=== PATIENT | female | born 1990 | race Caucasian/White ===

== ENCOUNTER 2019-02-16 03:36 | Emergency (ER) | payer OTHER ==
[~2019-02-16] VITALS: Ht 170.2 cm; Wt 116.1 kg
[2019-02-16 03:39] VITALS: Ht 170.2 cm; Wt 116.1 kg
[2019-02-16 06:32] VITALS: BP 115/63
== END 2019-02-16 06:32 | disposition home or self-care (01) ==
LOC: ED 03:36
DX: S01.412A Laceration without foreign body of left cheek and temporomandibular area, initial encounter (principal); Y04.8XXA Assault by other bodily force, initial encounter; Y93.89 Activity, other specified; Y92.89 Other specified places as the place of occurrence of the external cause; Y99.8 Other external cause status
CPT/HCPCS: J0295; J1885; J2001